=== PATIENT | male | born 1970 ===

== ENCOUNTER 2019-01-03 13:14 | Emergency (ER) | payer BC ==
[2019-01-03 13:21] VITALS: BP 149/89
--- NOTE | 2019-01-03 14:24 | UC ---
Abdominal Pain Male HPI - HPI Summary HPI Summary: Patient has had LUQ pain intermittently for the past couple of months. Has had 3 episodes in the past several weeks. Pain lasts for about 2 days and spontaneously resolves. He reports some occasional left shoulder pain that accompanies the abdominal pain. He denies fever. No nausea. No diarrhea. He does report occasional emesis but states that this is baseline for him since his lap band procedure in 2009. Pain is worse with deep breaths and movement. It is not exertional. He has no shortness of breath or sweats. Symptoms do seem worse after eating. - History of Current Complaint Chief Complaint: UCChestPain Stated Complaint: LT PAIN UNDER RIBS Hx Obtained From: Patient, Family/Help Desk Coordinator - Onset/Duration: Lasting Weeks Severity Initially: Moderate Severity Currently: Moderate Pain Intensity: 7 Pain Scale Used: 0-10 Numeric Location: Discrete At: LUQ Radiates: No Character: Sharp Aggravating Factor(s): Food, Movement Alleviating Factor(s): Spontaneous Resolution Associated Signs And Symptoms: Positive: Vomiting. Negative: Diaphoresis, Fever , Cough, Back Pain, Constipation, Blood in Stool, Urinary Symptoms, Decreased Appetite, Nausea, Diarrhea - Allergies/Home Medications Allergies/Adverse Reactions: Allergies Allergy/AdvReac Type Severity Reaction Status Date / Time acetazolamide Allergy unk Verified 01/03/19 13:21 [From Diamox Sequels] Penicillins Allergy Rash Verified 01/03/19 13:21 PMH/Surg Hx/FS Hx/Imm Hx - Additional Past Medical History Additional PMH: LAP BAND 2009 Respiratory History: Asthma - Surgical History Surgical History: Yes Surgery Procedure, Year, and Place: appy,left knee , - Social History Alcohol Use: Occasionally Substance Use Type: None Smoking Status (MU): Former Smoker Review of Systems All Other Systems Reviewed And Are Negative: Yes Constitutional: Positive: Negative Respiratory: Positive: Negative Cardiovascular: Positive: Negative Gastrointestinal: Positive: Abdominal Pain, Vomiting. Negative: Diarrhea, Nausea Genitourinary: Positive: Negative Physical Exam Triage Information Reviewed: Yes Appearance: Well-Appearing, No Pain Distress, Well-Nourished Vital Signs: Initial Vital Signs Temp 98 F 01/03/19 13:16 Pulse 106 01/03/19 13:16 Resp 20 01/03/19 13:16 BP 149/89 01/03/19 13:16 Pulse Ox 99 01/03/19 13:16 Laboratory Tests 01/03/19 14:08 POC Urine Color Rayne POC Urine Clarity Clear POC Urine pH 6.0 POC Ur Specif Whiteside >= 1.030 POC Urine Protein Trace A POC Ur Glucose (UA) Negative POC Urine Ketones Negative POC Urine Blood Negative POC Urine Nitrite Negative POC Urine Bilirubin 1+ A POC Urine Urobilinogen 0.2 POC U Leukocyte Esteras Negative Vital Signs Reviewed: Yes Eyes: Positive: Conjunctiva Clear ENT: Positive: Hearing grossly normal Neck: Positive: Supple, Nontender, No Lymphadenopathy Respiratory Exam: Normal Cardiovascular Exam: Normal Abdomen Description: Positive: Soft, Other: - MILDLY TENDER LUQ. NEG MURPHYS. Negative: CVA Tenderness (R), CVA Tenderness (L), Distended, Guarding Bowel Sounds: Positive: Present Musculoskeletal: Positive: No Edema Neurological: Positive: Alert Psychological: Positive: Normal Response To Family, Age Appropriate Behavior Skin: Negative: Rashes Diagnostics - EKG Cardiac Rate: NL - 90bpm Cardiac Rhythm: Sinus: Normal Ectopy: None EKG Comparison: No Significant Change Abd Pain Male Course/Dx - Course Course Of Treatment: EKG APPEARS UNCHANGED FROM PREVIOUS. URINE DIP UNREMARKABLE. BASED ON PRESENTATION CONCERN FOR GASTRITIS. PATIENT HAS A HISTORY OF A LAP BAND PROCEDURE IN 2009. HAVE SCHEDULED AN APPOINTMENT WITH GI ON 01/07/19 AT 3 PM. PRESCRIPTIONS FOR PPI AND SUCRALFATE PROVIDED TODAY. CBC, CMP, AMYLASE AND LIPASE DRAWN. ADVISED EASY DIET AND SMALLER MORE FREQUENT MEALS. TO THE ER WITHOUT FAIL IF SYMPTOMS WORSEN. - Differential Dx/Clinical Impression Provider Diagnosis: Gastritis Discharge - Sign-Out/Discharge Documenting (check all that apply): Patient Departure All imaging exams completed and their final reports reviewed: No Studies - Discharge Plan Condition: Stable Disposition: HOME Prescriptions: Omeprazole 40 mg PO DAILY #30 capsule. Sucralfate SUSP 10 ml PO QID #400 ml Patient Education Materials: Gastritis (ED) Referrals: Juliana Barton PA [Physician Appliance Service Supervisor] - (YOU HAVE AN APPT 01/07/19 AT 3PM) Evan Smith MD [Primary Care Provider] - If Needed Additional Instructions: TAKE THE REFLUX MEDICINE IN THE MORNING (IDEALLY AT LEAST 30 MINUTES BEFORE YOU EAT). EAT SLOWLY. STAY UPRIGHT AT LEAST 30 MINUTES AFTER EATING. EAT SMALLER, MORE FREQUENT MEALS OPPOSED TO LARGE INFREQUENT MEALS. AVOID POSSIBLE TRIGGER FOODS - GREASY, SPICY, ACIDIC FOODS. CAFFEINE, ALCOHOL. TAKE THE SUCRALFATE 4 TIMES DAILY - 1 HR BEFORE MEALS AND AT BED TIME. YOU HAVE BEEN SCHEDULED TO SEE GI NEXT SUNDAY AT 3PM. LABS DRAWN TODAY - CBC, CMP, AMYLASE AND LIPASE. URINE DIP WAS UNREMARKABLE. GO TO THE ER WITHOUT FAIL IF YOU DEVELOP WORSENING PAIN, FEVER, NAUSEA, BLOOD IN THE VOMIT, INABILITY TO TOLERATE PO OR ANY OTHER CONCERNING SYMPTOMS. IBUPROFEN MAX DOSE: 600MG (3 TABS) EVERY 6 HRS OR 800MG (4 TABS) EVERY 8 HRS OR NAPROXEN MAX DOSE: 440MG (2 TABS) EVERY 12 HRS TYLENOL MAX DOSE: 1000MG (2 EXTRA STRENGTH TABS) EVERY 8 HRS OR 650MG (2 REGULAR TABS) EVERY 6 HRS - Billing Disposition and Condition Condition: STABLE Disposition: Home
[2019-01-03 18:43] LABS: Hematocrit 43 % (42-52); Hemoglobin 14.6 g/dl (14.0-18.0); Mean Corpuscular HGB Conc 34 g/dl (31-36); Mean Corpuscular Hemoglobin 30 pg (27-31); Mean Corpuscular Volume 87 fL (80-94); Mean Platelet Volume 8.7 fL (7.4-10.4); Platelet Count 220 10^3/ul (150-450); Red Blood Count 4.94 10^6/ul (4.00-5.40); Red Cell Distribution Width 13 % (10.5-15); White Blood Count 12.7 10^3/ul (3.5-10.8)
[2019-01-03 19:11] LABS: Albumin 4.5 g/dL (3.2-5.2); Amylase 43 U/L (29-103); Anion Gap 7 mmol/L (2-11); CO2 Carbon Dioxide 26 mmol/L (22-32); Calcium 9.3 mg/dL (8.6-10.3); Chloride 106 mmol/L (101-111); Potassium 3.8 mmol/L (3.5-5.0); Sodium 139 mmol/L (135-145)
[2019-01-03 19:17] LABS: ALT 34 U/L (7-52); AST 17 U/L (13-39); Alkaline Phosphatase 45 U/L (34-104); BUN/Creatinine Ratio 20.2 (8-20); Blood Urea Nitrogen 17 mg/dL (6-24); EGFR Non-African American 97.5 (>60); Globulin 2.3 g/dL (2-4); Glucose 98 mg/dL (70-100); Total Protein 6.8 g/dL (6.4-8.9)
[2019-01-03 19:32] LABS: ABS Basophils 0.1 10^3/ul (0-0.2); ABS Eosinophils 0.1 10^3/ul (0-0.6); ABS Lymphocytes 1.7 10^3/ul (1.0-4.8); ABS Monocytes 1.8 10^3/ul (0-0.8); ABS Neutrophils 9.1 10^3/ul (1.5-7.7); ABS Nucleated RBC 0 10^3/ul; Eosinophil % 0.7 %; Lymphocyte % 13.4 %; Nucleated Red Blood Cells % 0.2
--- NOTE | 2019-01-04 07:27 | UC ---
- Progress Note Progress Note: CBC with diff - slight increased WBC, no shift CMP reviewed No change j 01/04/19 Course/Dx - Diagnoses Provider Diagnoses: Gastritis Discharge - Sign-Out/Discharge Documenting (check all that apply): Post-Discharge Follow Up All imaging exams completed and their final reports reviewed: No Studies - Discharge Plan Condition: Stable Disposition: HOME Prescriptions: Omeprazole 40 mg PO DAILY #30 capsule. Sucralfate SUSP 10 ml PO QID #400 ml Patient Education Materials: Gastritis (ED) Referrals: Juliana Barton PA [Physician Wrapping Machine Tender] - (YOU HAVE AN APPT 01/07/19 AT 3PM) Evan Smith MD [Primary Care Provider] - If Needed Additional Instructions: TAKE THE REFLUX MEDICINE IN THE MORNING (IDEALLY AT LEAST 30 MINUTES BEFORE YOU EAT). EAT SLOWLY. STAY UPRIGHT AT LEAST 30 MINUTES AFTER EATING. EAT SMALLER, MORE FREQUENT MEALS OPPOSED TO LARGE INFREQUENT MEALS. AVOID POSSIBLE TRIGGER FOODS - GREASY, SPICY, ACIDIC FOODS. CAFFEINE, ALCOHOL. TAKE THE SUCRALFATE 4 TIMES DAILY - 1 HR BEFORE MEALS AND AT BED TIME. YOU HAVE BEEN SCHEDULED TO SEE GI NEXT SUNDAY AT 3PM. LABS DRAWN TODAY - CBC, CMP, AMYLASE AND LIPASE. URINE DIP WAS UNREMARKABLE. GO TO THE ER WITHOUT FAIL IF YOU DEVELOP WORSENING PAIN, FEVER, NAUSEA, BLOOD IN THE VOMIT, INABILITY TO TOLERATE PO OR ANY OTHER CONCERNING SYMPTOMS. IBUPROFEN MAX DOSE: 600MG (3 TABS) EVERY 6 HRS OR 800MG (4 TABS) EVERY 8 HRS OR NAPROXEN MAX DOSE: 440MG (2 TABS) EVERY 12 HRS TYLENOL MAX DOSE: 1000MG (2 EXTRA STRENGTH TABS) EVERY 8 HRS OR 650MG (2 REGULAR TABS) EVERY 6 HRS - Billing Disposition and Condition Condition: STABLE Disposition: Home
== END 2019-01-03 14:42 | disposition home or self-care (01) ==
LOC: UCEAST 13:14
DX: R10.12 Left upper quadrant pain (principal); M25.512 Pain in left shoulder; R11.10 Vomiting, unspecified; J45.909 Unspecified asthma, uncomplicated; Z87.891 Personal history of nicotine dependence; Z88.0 Allergy status to penicillin; Z88.8 Allergy status to other drugs, medicaments and biological substances
CPT/HCPCS: 36415; 80053; 81003; 82150; 83690; 85025; 93005; 99212; G0463

== ENCOUNTER 2021-06-27 10:42 | Inpatient (IN) ==
[~2021-06-27 10:42] MED LIST: Buffered Lidocaine 1% SYRIN 1 ml INTRADERM ONE; Famotidine IV 10 MG/ML 2 ml VIAL (20 mg) IV ONE; Lactated Ringers 1000 ml BAG 1,000 ML IV SCH
[2021-06-27] MEDS ORDERED: Clindamycin 900 MG/D5W BAG 900 MG/50 ML BAG IVPB ONE (11:08)
[2021-06-27] MEDS ORDERED: Heparin 5000 UNITS/ML 1 mL VIAL ONE (11:08)
[2021-06-27] MEDS ORDERED: Famotidine IV 10 MG/ML 2 ml VIAL (20 mg) ONE (11:08)
[2021-06-27] MEDS ORDERED: Bupivacaine 0.25% EPI 200,000 30 ML SDV ONE (15:37)
[2021-06-27] MEDS ORDERED: Propofol 10 MG/ML 20 ML BTL ONE (15:46)
[2021-06-27] MEDS ORDERED: Rocuronium 50 mg VIAL 10 mg/ml 5 ml VIAL (50 mg) ONE ×2 (15:46→16:13)
[2021-06-27] MEDS ORDERED: fentaNYL 100 mcg/2 ml 50 MCG/ML VIAL ONE ×2 (15:46→18:44)
[2021-06-27] MEDS ORDERED: Midazolam 5 mg/5 ml VIAL 1 mg/ml 5 ml VIAL (5 mg) ONE (15:53)
[2021-06-27] MEDS ORDERED: Ciprofloxacin 400mg IVPREMIX 400 MG/200 ML BAG ONE (16:09)
[2021-06-27] MEDS ORDERED: Ondansetron 4 mg VIAL 2 MG/ML 2 ml VIAL ONE ×2 (16:45→18:44)
[2021-06-27] MEDS ORDERED: fentaNYL 250 mcg/5 ml 50 MCG/ML 5 ml VIAL (250 MCG) ONE (16:45)
[2021-06-27] MEDS ORDERED: Dexamethasone IV 4 MG/ML VIAL 1 ml VIAL ONE (16:45)
[2021-06-27] MEDS ORDERED: Sugammadex 500 MG/5 ML 5 ml VIAL IV PUSH ONE (18:02)
[2021-06-27] MEDS ORDERED: Lactated Ringers 1000 ml BAG 1,000 ML IV ONE (18:38)
[2021-06-27] MEDS ORDERED: Metoclopramide 5 MG/ML VIAL (10 mg) IV PRN ×2 (18:39→18:47)
[2021-06-27] MEDS ORDERED: DiMENhydriNATE IV 50 mg/ml 1 ml VIAL IV PUSH PRN (18:39)
[2021-06-27] MEDS ORDERED: Ondansetron 4 mg VIAL 2 MG/ML 2 ml VIAL IV PRN (18:39)
[2021-06-27] MEDS ORDERED: Acetaminophen IV 1 GM/100ML 100 ML IV PRN (18:40)
[2021-06-27] MEDS ORDERED: HYDROmorphone 0.5 MG/0.5 ML SYRINGE IV SLOW PU PRN (18:41)
[2021-06-27] MEDS ORDERED: DiMENhydriNATE IV 50 mg/ml 1 ml VIAL ONE (18:44)
[2021-06-27] MEDS ORDERED: Mometasone/Formoter 100/5 MDI INH PRN (18:44)
[2021-06-27] MEDS ORDERED: Albuterol HFA INHALER 8 gm MDI INH PRN (18:44)
[2021-06-27] MEDS: fentaNYL 100 mcg/2 ml 50 MCG/ML VIAL IV PRN ×2 (18:49→19:18)
[2021-06-27] MEDS ORDERED: Metoclopramide 5 MG/ML VIAL (10 mg) ONE (19:08)
[2021-06-27] MEDS: Morphine 4 MG/ML VIAL (1 ml) IV PRN ×2 (19:19→20:00)
[2021-06-27] MEDS ORDERED: Morphine 4 MG/ML VIAL (1 ml) ONE (19:19)
[2021-06-27] MEDS: Lactated Ringers 1000 ml BAG 1,000 ML IV SCH (21:26)
[2021-06-27] MEDS: HYDROmorphone 1 MG/1 ML SYRINGE IV SLOW PU PRN (21:34)
[2021-06-27] MEDS: Pantoprazole VIAL 40 MG VIAL IV SCH (21:43)
[2021-06-27] MEDS: metroNIDAZOLE IV 500 MG/100ML 500 MG/100 ML BAG IVPB SCH (22:23)
[2021-06-27] MEDS ORDERED: LACTATED RINGERS 1000 ML/HR *Bolus IV ONE (23:00)
[2021-06-28] MEDS: HYDROmorphone 1 MG/1 ML SYRINGE IV SLOW PU PRN ×6 (00:37→18:05)
[2021-06-28] MEDS: Lactated Ringers 1000 ml BAG 1,000 ML IV SCH ×3 (00:57→23:32)
[2021-06-28] MEDS: Ciprofloxacin 400mg IVPREMIX 400 MG/200 ML BAG IVPB SCH ×2 (04:55→16:36)
[2021-06-28] MEDS: metroNIDAZOLE IV 500 MG/100ML 500 MG/100 ML BAG IVPB SCH ×3 (06:04→21:20)
[2021-06-28] MEDS: Heparin 5000 UNITS/ML 1 mL VIAL SUBCUT SCH ×3 (06:06→21:23)
[2021-06-28 06:15] LABS: ABS Lymphocytes 1.1 10^3/ul (1.0-4.8); ABS Monocytes 1.3 10^3/ul (0-0.8); ABS Neutrophils 15.5 10^3/ul (1.5-7.7); Hematocrit 37 % (42-52); Hemoglobin 12.5 g/dL (14.0-18.0); Lymphocyte % 5.9 %; Mean Corpuscular HGB Conc 33 g/dL (31-36); Mean Corpuscular Hemoglobin 29 pg (27-31); Mean Corpuscular Volume 87 fL (80-94); Mean Platelet Volume 7.4 fL (7.4-10.4); Platelet Count 446 10^3/uL (150-450); Red Blood Count 4.29 10^6 /uL (4.18-5.48); Red Cell Distribution Width 13 % (10-15); White Blood Count 17.9 10^3/uL (3.5-10.8)
[2021-06-28 06:30] LABS: Calcium 8.4 mg/dL (8.6-10.3); EGFR African American 129.4 (>60); EGFR Non-African American 106.9 (>60); Potassium 4.1 mmol/L (3.5-5.0)
[2021-06-28] MEDS: Nicotine PATCH 14 MG/24 HR PATCH TRANSDERM SCH (08:06)
[2021-06-28] MEDS: Pantoprazole VIAL 40 MG VIAL IV SCH (20:33)
[2021-06-28] MEDS ORDERED: oxyCODONE/Acetamin 5/325 mg TAB PO PRN (20:55)
[2021-06-28] MEDS: oxyCODONE/Acetamin 5/325 mg TAB PO PRN (21:19)
[2021-06-29] MEDS: oxyCODONE/Acetamin 5/325 mg TAB PO PRN (01:25)
[2021-06-29] MEDS: Ciprofloxacin 400mg IVPREMIX 400 MG/200 ML BAG IVPB SCH (04:34)
[2021-06-29] MEDS: HYDROmorphone 1 MG/1 ML SYRINGE IV SLOW PU PRN (04:58)
[2021-06-29] MEDS: metroNIDAZOLE IV 500 MG/100ML 500 MG/100 ML BAG IVPB SCH (05:57)
[2021-06-29] MEDS: Heparin 5000 UNITS/ML 1 mL VIAL SUBCUT SCH (05:59)
[2021-06-29 06:35] LABS: ABS Eosinophils 0.1 10^3/ul (0-0.6); ABS Lymphocytes 1.9 10^3/ul (1.0-4.8); ABS Monocytes 1.4 10^3/ul (0-0.8); ABS Neutrophils 7.5 10^3/ul (1.5-7.7); Eosinophil % 0.7 %; Hematocrit 36 % (42-52); Hemoglobin 11.9 g/dL (14.0-18.0); Lymphocyte % 17.1 %; Mean Corpuscular HGB Conc 34 g/dL (31-36); Mean Corpuscular Hemoglobin 30 pg (27-31); Mean Corpuscular Volume 89 fL (80-94); Mean Platelet Volume 7.3 fL (7.4-10.4); Platelet Count 393 10^3/uL (150-450); Red Cell Distribution Width 13 % (10-15); White Blood Count 10.9 10^3/uL (3.5-10.8)
[2021-06-29] MEDS: Nicotine PATCH 14 MG/24 HR PATCH TRANSDERM SCH (09:01)
[2021-06-29 11:32] VITALS: BP 120/84
== END 2021-06-29 13:12 | disposition home or self-care (01) | DRG 850 ==
LOC: AA 10:42 → SSU 21:11
PROVIDERS: ADMIT Surgery; ATTEND Surgery